=== PATIENT | female | born 1970 | race Caucasian/White ===

== ENCOUNTER → 2016-12-14 | Outpatient (CLI) | payer OTHER ==
--- NOTE | 2016-12-14 13:34 | US ---
Complete Abdominal Sonography Clinical History: 45-year-old female with abdominal distention and a throbbing sensation which devel oped over the past year. The patient denies any pain, bowel change, nausea, or vomiting, although did have an amoebic GI infection 2 years ago. ICD-10 Diagnostic Code: R14.0. Technique: A curvilinear 5 MHz transducer was used to sonographically evaluate the upper abdomen. Col or Doppler was also used. Cine clips were acquired just lateral to the umbilicus where the patient escalante s pain. Imaging was performed with and without Valsalva maneuver. Comparison Studies: Abdominal sonography, dated November 18, 2014, and contrast-enhanced CT scan of t he abdomen, dated November 22, 2014. Findings: The pancreatic contour is normal. The abdominal aorta and IVC are normal in caliber, and th e main portal vein is patent. The visualized IVC is normal in caliber. The hepatic vein trifurcation is normal. There is no ascites or pleural effusion. The liver is normal in size and homogeneous in ec hotexture, measuring 13.7 cm along the right midaxillary line. There is no focal hepatic mass, nor is there any intrahepatic or extrahepatic bile duct dilatation. The common bile duct measures 2.0 mm. T he gallbladder is moderately distended, with no stones, sludge, wall thickening, pericholecystic flui d, or sonographic Morin sign. The kidneys are normal in size, shape, and position, with no focal meño al mass or hydronephrosis. The right kidney measures 11.5 x 5.2 x 3.2 cm, with a renal cortical thick ness of 1.3 cm. The left kidney measures 10.8 x 4.7 x 3.7 cm, with a renal cortical thickness of 1.2 cm. The spleen is normal, measuring 7.7 cm in length. Imaging of the periumbilical region did not rev eal any focal mass or hernia. Bowel gas is present. If there is further clinical concern regarding the patient's symptoms, contrast-enhanced CT imaging o f the abdomen and pelvis could be considered. Impression: Normal exam.
== END ==
LOC: BRMIMAGING 11:21
PROVIDERS: ATTEND Family Medicine
DX: R14.0 Abdominal distension (gaseous) (principal)
CPT/HCPCS: 76700-PO

== ENCOUNTER → 2016-12-28 | Outpatient (CLI) | payer OTHER | LOC: FIMAGING 10:10 | PROVIDERS: ATTEND Family Medicine | DX: R14.0 Abdominal distension (gaseous) (principal) ==

== ENCOUNTER → 2017-07-26 | Outpatient (CLI) | payer OTHER | LOC: FIMAGING 10:22 | PROVIDERS: ATTEND Obstetrics & Gynecology | DX: Z12.31 Encounter for screening mammogram for malignant neoplasm of breast (principal) | CPT/HCPCS: G0202 ==

== ENCOUNTER → 2017-11-08 | Outpatient (CLI) | payer OTHER ==
[~2017-11-08] MED LIST: IOPAMIDOL (ISOVUE 370) 100 ML BTL IV ONE
== END ==
LOC: FIMAGING 11:57
PROVIDERS: ATTEND Radiology Diagnostic Radiology
DX: D25.9 Leiomyoma of uterus, unspecified (principal); K76.89 Other specified diseases of liver
CPT/HCPCS: Q9967

== ENCOUNTER 2018-02-13 07:50 | Observation (INO) | payer OTHER ==
[~2018-02-13 07:50] MED LIST changes: +ALTEPLASE 2 MG VIAL IVP PRN; +DEXAMETHASONE 10 MG/ML VIAL IVP ONE; +FLUMAZENIL 0.5 MG/5 ML MDV IVP PRN; +GLUCAGON HCL 1 MG VIAL IVP PRN; +HEPARIN 10,000 UNIT/10 ML MDV (1,000 UNIT/ML) IVP PRN; -IOPAMIDOL (ISOVUE 370) 100 ML BTL IV ONE; +KETOROLAC 30 MG/1 ML SDV IVP ONE; +MEPERIDINE 25 MG/ML SYR IVP PRN; +MIDAZOLAM 2 MG/2 ML VIAL IVP PRN; +NALOXONE HCL 0.4 MG/ML INJ IVP PRN; +NS 1,000 ML IV ONE; +PROTAMINE SULFATE 50 MG/5 ML VIAL IVP PRN; +SCOPOLAMINE HYDROBROMIDE 1 MG/3 DAYS PATCH TD ONE; +fentaNYL 100 MCG/2 ML INJ IVP PRN
[2018-02-13] MEDS ORDERED: NALOXONE HCL 0.4 MG/ML INJ IVP PRN ×2 (08:05→12:20)
[2018-02-13] MEDS ORDERED: HYDROmorphONE/DILAUDID 6 MG/30 ML PCA IV PRN ×2 (08:05→12:20)
[2018-02-13] MEDS ORDERED: ONDANSETRON 4 MG/2 ML VIAL ONE (08:47)
--- NOTE | 2018-02-13 09:40 | PDPROPOC ---
Sedation Plan of Care Sedation Plan of Care: vital signs stable, mental status noted, patient educated of risks, benefits, alternatives, patient can tolerate sedation ASA Classification: ASA 1 Planned drugs: fentanyl, midazolam Mallampati Score: Class 1 Mallampati Reference Image: Patient passed 3-3-2 rule?: Yes
--- NOTE | 2018-02-13 09:43 | PDGENHP ---
History & Physical Chief Complaint: HEAVY MENSTRAL BLEEDING History of Present Illness: JUST HAD TWO PERIODS. STILL SPOTTING. SEVERE CRAMPING. Pertinent Past, Social, Family History: LT SHOULDER SUBACRJIOMIAL DECOMPRESSION; Relevant Physical Exam: NO DISTRESS. Cardiorespiratory Assessment: RRR, CTA
[2018-02-13] MEDS ORDERED: fentaNYL 100 MCG/2 ML INJ ONE ×2 (10:27→11:27)
[2018-02-13] MEDS ORDERED: MIDAZOLAM 2 MG/2 ML VIAL ONE ×2 (10:27→11:28)
[2018-02-13] MEDS ORDERED: IOPAMIDOL (ISOVUE-370) 150 ML BTL IV ONE (10:31)
[2018-02-13] MEDS ORDERED: IOPAMIDOL (ISOVUE-300) 100 ML BTL ONE ×2 (11:18→12:39)
[2018-02-13] MEDS ORDERED: ACETAMINOPHEN 325 MG TAB PO PRN (12:20)
[2018-02-13] MEDS ORDERED: ONDANSETRON 4 MG/2 ML VIAL IVP PRN (12:20)
[2018-02-13] MEDS ORDERED: POLYETHYLENE GLYCOL 3350 17 GM PKT PO PRN (12:20)
[2018-02-13] MEDS ORDERED: ZOLPIDEM TARTRATE 5 MG TAB PO PRN (12:20)
[2018-02-13] MEDS ORDERED: LACTULOSE 20 GM/30 ML UDCUP PO PRN (12:20)
[2018-02-13] MEDS ORDERED: BISACODYL 10 MG SUPP PR PRN (12:20)
[2018-02-13] MEDS ORDERED: MAGNESIUM HYDROXIDE 30 ML UDCUP PO PRN (12:20)
--- NOTE | 2018-02-13 12:25 | PDRADPN ---
Radiology Procedure Note Date of Procedure: 02/13/18 Radiologist: Leti Jonas Anesthesia: IV Sedation Pre-op Diagnosis: UTERINE FIBROIDS Post-op Diagnosis: SAME Indication: HEAVY MENSTRUATION Procedure: [place] Finding(s): BILATERAL OVARIAN COILED, BILATERAL UTERINE PARTICLE EMBOLIZED. Inf/Abcess present in the surg proc area at time of surgery?: No Complications: NONE
[2018-02-13] MEDS ORDERED: NS 1,000 ML IV SCH (12:30)
[2018-02-13] MEDS ORDERED: BUPIVACAINE 0.5% 30 ML SDV ONE (12:38)
[2018-02-13] MEDS ORDERED: LIDOCAINE 1% 300 MG/30 ML SDV ONE (12:39)
[2018-02-13] MEDS ORDERED: NITROGLYCERIN/D5W 50 MG/250 ML BOTTLE IV ONE (15:36)
[2018-02-13] MEDS: KETOROLAC 30 MG/1 ML SDV IVP SCH ×2 (18:15→23:56)
[2018-02-13] MEDS ORDERED: PROMETHAZINE HCL 25 MG/ML INJ IVP PRN (20:59)
[2018-02-13] MEDS: oxyCODONE IR 5 MG TAB PO SCH (21:40)
[2018-02-13] MEDS: morphINE SR 15 MG TAB PO SCH (21:41)
[2018-02-13] MEDS: SENNOSIDES/DOCUSATE SODIUM TAB PO SCH (21:46)
[2018-02-13] MEDS: ONDANSETRON DISINTEGRATING 4 MG TAB PO PRN (23:55)
[2018-02-14] MEDS: oxyCODONE IR 5 MG TAB PO SCH ×3 (01:30→10:11)
[2018-02-14] MEDS: ONDANSETRON DISINTEGRATING 4 MG TAB PO PRN ×2 (05:29→13:18)
[2018-02-14] MEDS: KETOROLAC 30 MG/1 ML SDV IVP SCH (05:30)
[2018-02-14] MEDS ORDERED: levOFLOXACIN 500 MG/DEXTROSE 100 ML IV ONE (09:00)
[2018-02-14] MEDS: SENNOSIDES/DOCUSATE SODIUM TAB PO SCH (09:55)
[2018-02-14] MEDS: morphINE SR 15 MG TAB PO SCH (10:11)
[2018-02-14] MEDS ORDERED: IBUPROFEN 600 MG TAB PO SCH (12:00)
--- NOTE | 2018-02-14 12:31 | SOAPPROG ---
SOAP Progress Note Assessment/Plan: Assessment: DOING VERY WELL POST [place]. Plan: D/C DENIS D/C INSTRUCTIONS GIVEN TO PATIENT. 02/14/18 12:30 Subjective: SOME NAUSEA LAST NIGHT. FLUSHED AND ITCHY WITH MORPHINE. OTHERWISE DID WELL. Objective: Vital Signs Temp Pulse Resp BP Pulse Ox 36.7 C 59 L 16 95/52 L 93 02/14/18 08:00 02/14/18 08:00 02/14/18 08:00 02/14/18 08:00 02/14/18 08:00 02/13/18 02/14/18 02/15/18 05:59 05:59 05:59 Intake Total 3230 Output Total 3150 Balance 80 INCISION GOOD. ABD SOFT. ICD10 Worksheet Patient Problems: Problems Problem Status Onset Submucous uterine fibroid Acute
[2018-02-14] MEDS ORDERED: diphenhydrAMINE 25 MG CAP PO ONE (13:30)
[2018-02-14 13:48] VITALS: BP 107/71; PULSE 61; RESP 18; TEMP 97.8; O2SAT 97
== END 2018-02-14 13:59 | disposition home or self-care (01) ==
LOC: FIMAGING 07:50 → F3E 12:20 → FOB 14:00
PROVIDERS: ADMIT Radiology Diagnostic Radiology; ATTEND Radiology Diagnostic Radiology
PROC: 04LE3DT Occlusion of Right Uterine Artery with Intraluminal Device, Percutaneous Approach (ICD-10-PCS; principal; 2018-02-13)
PROC: B41B1ZZ Fluoroscopy of Other Intra-Abdominal Arteries using Low Osmolar Contrast (ICD-10-PCS; principal; 2018-02-13)
PROC: 04LF3DU Occlusion of Left Uterine Artery with Intraluminal Device, Percutaneous Approach (ICD-10-PCS; principal; 2018-02-13)
DX: D25.9 Leiomyoma of uterus, unspecified (principal); N92.0 Excessive and frequent menstruation with regular cycle
CPT/HCPCS: 36247; 36248; 37243; 75736; 99152; 99153; C1769; C1894; G0378; C1760; J1100; J1170; J1644; J1885; J1956; J2250; J2270; J2310; J2405; J3010; Q9967

== ENCOUNTER → 2018-06-06 | Outpatient (CLI) | payer OTHER ==
[~2018-06-06] MED LIST changes: -ALTEPLASE 2 MG VIAL IVP PRN; -DEXAMETHASONE 10 MG/ML VIAL IVP ONE; -FLUMAZENIL 0.5 MG/5 ML MDV IVP PRN; +GADOBUTROL 10 ML VIAL IVP ONE; -GLUCAGON HCL 1 MG VIAL IVP PRN; -HEPARIN 10,000 UNIT/10 ML MDV (1,000 UNIT/ML) IVP PRN; -KETOROLAC 30 MG/1 ML SDV IVP ONE; -MEPERIDINE 25 MG/ML SYR IVP PRN; -MIDAZOLAM 2 MG/2 ML VIAL IVP PRN; -NALOXONE HCL 0.4 MG/ML INJ IVP PRN; -NS 1,000 ML IV ONE; -PROTAMINE SULFATE 50 MG/5 ML VIAL IVP PRN; -SCOPOLAMINE HYDROBROMIDE 1 MG/3 DAYS PATCH TD ONE; -fentaNYL 100 MCG/2 ML INJ IVP PRN
== END ==
LOC: FIMAGING 11:49
PROVIDERS: ATTEND Radiology Diagnostic Radiology
DX: D25.9 Leiomyoma of uterus, unspecified (principal)
CPT/HCPCS: A9585

== ENCOUNTER → 2018-08-23 | Outpatient (CLI) | payer OTHER | LOC: FIMAGING 10:19 | PROVIDERS: ATTEND Physician Assistant Medical | DX: Z12.31 Encounter for screening mammogram for malignant neoplasm of breast (principal) ==

== ENCOUNTER → 2019-05-22 | Outpatient (CLI) | payer OTHER | LOC: FIMAGING 07:49 ==